=== PATIENT | male | born 1990 | race Two or more races ===

== ENCOUNTER 2023-03-20 00:38 | Emergency (ER) | payer OTHER ==
[~2023-03-20] VITALS: Ht 180.3 cm; Wt 117.9 kg
[~2023-03-20 00:38] MED LIST: LOTRISONE CREAM45 GM TP; SYMBICORT 16010.2 GM IH; TUSSIN DM SYRU120 ML PO; WELLBUTRIN SR100 MG; XOPENEX0.63 MG/3 IH
== END 2023-03-20 11:49 | disposition home or self-care (01) ==
LOC: ER 00:38
DX: M79.605 Pain in left leg (principal); Z88.0 Allergy status to penicillin; Z88.6 Allergy status to analgesic agent; Z88.8 Allergy status to other drugs, medicaments and biological substances